=== PATIENT | male | born 1980 | race Caucasian/White ===

== ENCOUNTER → 2019-06-16 | Outpatient (CLI) | payer BC ==
--- NOTE | 2019-06-17 12:33 | US ---
EXAM DESCRIPTION: Gall Bladder: ULTRASOUND. CLINICAL HISTORY: GALLSTONE CALCULUS OF GALLBLADDER COMPARISON: None. TECHNIQUE: Transabdominal scanning: Padilla-scale and Doppler modes. FINDINGS: Gallbladder: Small with multiple echogenic stones with posterior acoustic shadowing, and sludge. Stones measure 2.0, 1.8 and 1.7 cm diameter.. No fluid around the gallbladder. No wall thickening. 2.5 mm. Non-tender with transducer pressure. Common bile duct: caliber 5.3 mm within normal limits. Liver: Heterogeneously increased echogenicity; contour liver capsule smooth where seen. Limited visualization of the left lobe due to intestinal gas shadowing. No fluid around the liver. Intrahepatic biliary ducts normal caliber. Doppler hepatopedal flow portal vein.. Long axis right lobe 14.8 cm. Pancreas: normal size heterogeneously increased echogenicity. Duct not seen. Aorta: Proximal caliber 1.6 cm normal limits. Right kidney: long axis is 10 cm. Cortical echogenicity and normal width 1.2 cm cortical thickness. No echogenic stones or hydronephrosis.. IMPRESSION: 1. Cholelithiasis. No wall thickening or fluid. Nontender with transducer pressure. Normal caliber of the common bile duct. 2. Mild steatosis of the liver with normal size. Otherwise unremarkable. Also steatosis of the pancreas but no mass. 3. Minimal right renal cortical thinning but otherwise unremarkable. Normal caliber of the proximal abdominal aorta and IVC. Electronically signed by: Antonio Hernandez MD 06/17/2019 12:32 PM CODING EDUCATOR
== END ==
LOC: US 10:34
PROVIDERS: ATTEND Nurse Practitioner Family
DX: K80.20 Calculus of gallbladder without cholecystitis without obstruction (principal); K76.0 Fatty (change of) liver, not elsewhere classified; K86.89 Other specified diseases of pancreas; N28.9 Disorder of kidney and ureter, unspecified

== ENCOUNTER 2019-07-10 05:52 | Day surgery (SDC) | payer BC ==
[2019-07-10] MEDS ORDERED: MAGNESIUM SULFATE INJ 1 GM/2 ML VIAL ONE (07:00)
[2019-07-10] MEDS ORDERED: raNITIdine HCL INJ 25 MG/ML VIAL ONE (07:00)
[2019-07-10] MEDS ORDERED: SODIUM CHLORIDE 0.9% 50 ML VIAL ONE (07:00)
[2019-07-10] MEDS ORDERED: PROPOFOL 200 MG/20 ML VIAL IV ONE (07:00)
[2019-07-10 14:15] VITALS: BP 124/94; TEMP 97.3; O2SAT 96
== END 2019-07-10 13:35 | disposition home or self-care (01) ==
LOC: AMB 05:52
PROVIDERS: ATTEND Surgery
DX: K80.10 Calculus of gallbladder with chronic cholecystitis without obstruction (principal); F17.220 Nicotine dependence, chewing tobacco, uncomplicated
CPT/HCPCS: 00790; 47563; 76000; A4216; J1100; J1170; J1885; J2250; J2405; J2780; J3010; J3475; J3490; J7120